=== PATIENT | female | born 1995 | race African-American/Black ===

== ENCOUNTER 2017-11-03 18:18 | Emergency (ER) | payer OTHER ==
[~2017-11-03] VITALS: Ht 162.6 cm; Wt 72.7 kg
[~2017-11-03 18:18] MED LIST: FLUT50SP EACH NARE
[2017-11-03 18:20] VITALS: BP 113/83; PULSE 93; RESP 16; TEMP 97.6; O2SAT 100
[2017-11-03] MEDS ORDERED: CYCL10TA PO (20:13)
[2017-11-03] MEDS ORDERED: IBUP1TAB7 PO (20:13)
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
== END 2017-11-03 20:36 | disposition home or self-care (01) ==
LOC: NEPK 18:18
DX: S29.012A Strain of muscle and tendon of back wall of thorax, initial encounter (principal); M54.5 Low back pain; V89.2XXA Person injured in unspecified motor-vehicle accident, traffic, initial encounter
CPT/HCPCS: 99283